=== PATIENT | male | born 1990 ===

== ENCOUNTER 2022-04-27 09:34 | Emergency (ER) | payer SELFPAY ==
[~2022-04-27] VITALS: Ht 165.1 cm; Wt 81.0 kg
[2022-04-27 09:46] VITALS: BP 127/76; TEMP 98.3
[2022-04-27] MEDS ORDERED: ZOFRAN ODT4 MG PO (11:04)
[2022-04-27 11:17] VITALS: PULSE 70
== END 2022-04-27 11:20 | disposition home or self-care (01) ==
LOC: COL.ER 09:34
DX: J10.1 Influenza due to other identified influenza virus with other respiratory manifestations (principal); F17.210 Nicotine dependence, cigarettes, uncomplicated; Z20.822 Contact with and (suspected) exposure to COVID-19; Z28.310 Unvaccinated for COVID-19
CPT/HCPCS: J2405